=== PATIENT | male | born 1950 | race Caucasian/White ===

== ENCOUNTER → 2017-09-26 | Day surgery (SDC) | payer MEDICARE, OTHER ==
[~2017-09-26] MED LIST: HYDROCODONE-AP1 EAC6 PO; LIPITOR 20 MG T20 M1 PO
[2017-09-26 08:40] LABS: HEMOGLOBIN 16.8 gm/dL (14.0-18.0); WBC 6.3 thou/uL (4.0-11.0)
[2017-09-26 08:41] LABS: ABSOLUTE BASOPHILS 0.1 thou/uL (0.0-0.2); ABSOLUTE EOSINOPHILS 0.2 thou/uL (0.0-0.7); ABSOLUTE MONOCYTES 0.5 thou/uL (0.0-1.2); ABSOLUTE NEUTROPHILS 3.5 thou/uL (1.6-8.1); BASOPHILS 0.8 %; EOSINOPHILS 3.7 %; HEMATOCRIT 49.4 % (42.0-52.0); MCH 29.2 pg (26.0-34.0); MCHC 33.9 g/dL (28.0-37.0); MCV 86.2 fL (80.0-100.0); MONOCYTES 8.6 %; MPV 9.1 fl. (7.2-11.1); NUCLEATED RBCS 0 /100WBC; PLATELET COUNT* 195 thou/uL (150-400); POLYS 55.9 %; RBC 5.73 mil/uL (4.50-6.00); RDW-CV 13.6 % (10.5-14.5)
[2017-09-26 08:42] LABS: CALCIUM 8.5 mg/dL (8.5-10.1); POTASSIUM 3.9 mmol/L (3.5-5.1)
--- NOTE | 2017-09-27 14:10 | EKG ---
[place] [address] ELECTROCARDIOGRAM REPORT Name: JEANNASANTOS Room: [facility]#: [id number] Admission: 09/26/17 Attend Phys: Franc Jama Discharge: Date of : 52 Report #: [id number] THIS REPORT FOR: //name// [facility] Test Date: 2017-09-26 Test Time: 08:26:18 Pat Name: SANTOS MEEKS Department: Room: Gender: M Staff Development Manager: : 1950 Requested By: Yamila Jama Order Number: [id number] Leopoldo MD: Santos Castellon Measurements Intervals [place] Rate: 70 P: 32 [place]: 164 QRS: -10 QRSD: 123 T: 25 QT: 418 QTc: 452 Interpretive Statements Sinus rhythm Right bundle branch block No previous ECG available for comparison Electronically Signed On 09-27-2017 14:09:48 [employer] by Santos Castellon [email or web address] <ELECTRONICALLY SIGNED> By: Santos Castellon MD, [facility] 09/27/17 1409 0826 0826 Santos Castellon MD, FACC /EPI
--- NOTE | 2017-10-04 12:41 | PROC ---
[facility] [address] [place] [address] PROCEDURE REPORT Name: SANTOS MEEKS Room: [facility]#: [id number] Admission: 09/26/17 Attend Phys: Franc Jama Discharge: Date of : 52 Report #: [id number] THIS REPORT FOR: //name// CC: Franc Jama Rick Casillascherelle DATE OF SERVICE: 09/26/2017 PREOPERATIVE DIAGNOSIS: Incarcerated umbilical hernia. POSTOPERATIVE DIAGNOSIS: Incarcerated umbilical hernia. PROCEDURE: Laparoscopic repair of incarcerated umbilical hernia with mesh. SURGEON: Dr. Franc Jama. ANESTHESIA: General. ESTIMATED BLOOD LOSS: Minimal. SPECIMENS: None. DESCRIPTION OF PROCEDURE: After informed consent was obtained, the patient was brought to the operating room and placed supine. SCDs were placed and working, preoperative antibiotics were administered, general anesthesia was induced. The abdomen was prepped and draped in usual sterile fashion. A 5 mm incision was made in the left upper quadrant. A 5 mm trocar was placed under direct vision. Pneumoperitoneum was established. A left-sided 8-mm port and a right-sided 5-mm port was placed. He had incarcerated omentum and preperitoneal fat in the umbilical hernia. This was all reduced. The defect measured approximately 1.5 cm. Therefore, an 11 cm Ventralight mesh was inserted. It was brought out to the anterior abdominal wall. It was tacked with about 25 absorbable tacks. Two transfascial 2-0 Ethibond sutures were placed superiorly and inferiorly in the mesh using a suture passer. The ports were then removed under direct vision. The skin was closed with 4-0 Monocryl. Incisions were sealed with Dermabond. COMPLICATIONS: None. DISPOSITION: The patient was taken to recovery in satisfactory condition. <ELECTRONICALLY SIGNED> By: Franc Jama MD 10/04/17 1241 1246 99Franc Jama MD /nt
== END | disposition home or self-care (01) ==
LOC: M.SUR 08:03
PROVIDERS: Family Medicine
DX: K42.0 Umbilical hernia with obstruction, without gangrene (principal)

== ENCOUNTER → 2018-04-21 | Outpatient (CLI) | payer MEDICARE, OTHER | LOC: M.MRI 14:26 | DX: G31.9 Degenerative disease of nervous system, unspecified (principal) ==

== ENCOUNTER 2020-04-04 21:13 | Emergency (ER) | payer MEDICARE, OTHER ==
[~2020-04-04] VITALS: Ht 182.9 cm; Wt 115.2 kg
[2020-04-04] MEDS ORDERED: B12 ACTIVE1000 MCG PO (21:29)
[2020-04-04] MEDS ORDERED: NAMENDA 10 MG T10 MG PO (21:29)
[2020-04-04] MEDS ORDERED: NORCO 5-325 TA1 EAC2 PO (22:39)
[2020-04-04] MEDS ORDERED: NABUMETONE 750750 M1 PO ×2 (22:39→22:40)
[2020-04-04 23:18] VITALS: BP 191/75
== END 2020-04-04 23:19 | disposition home or self-care (01) ==
LOC: M.ERS 21:13
DX: M77.31 Calcaneal spur, right foot (principal); E78.00 Pure hypercholesterolemia, unspecified; F03.90 Unspecified dementia, unspecified severity, without behavioral disturbance, psychotic disturbance, mood disturbance, and anxiety; Z85.46 Personal history of malignant neoplasm of prostate; Z96.651 Presence of right artificial knee joint